=== PATIENT | male | born 1990 | race American Indian/Alaskan Native ===

== ENCOUNTER 2018-05-14 14:13 | Emergency (ER) | payer SELFPAY ==
[2018-05-14 14:33] VITALS: BP 113/61
[2018-05-14] MEDS ORDERED: TYLENOL ONE (17:12)
[2018-05-14] MEDS ORDERED: TYLENOL PO ONE (17:17)
[2018-05-14] MEDS ORDERED: ROXICODONE PO ONE (20:31)
--- NOTE | 2018-05-14 20:37 | Emergency Department Report ---
ED ENT HPI - General Chief complaint: Dental/Oral Stated complaint: TOOTHACHE Time Seen by Provider: 05/14/18 20:31 Source: patient Mode of arrival: Ambulatory Limitations: No Limitations - History of Present Illness Initial comments: 27-year-old -German male comes in for severe tooth pain that located in the right lower jaw. Patient reports that the onset was last night. Patient reports he did take ibuprofen 30 minutes prior to arrival here in the emergency room with no relief of pain. Patient reports that he also has a headache with the toothache. He reports he tried to put a temporary filling that he got [id number] and has used Orajel with no relief. Patient is aware that he has a hole in his tooth. She currently has no known drug allergies has no past medical history and currently takes no medications on a daily basis. MD complaint: tooth pain -: days(s) (1) Location: tooth # (30) Severity scale (0 -10): 10 Quality: stabbing, aching, sharp, constant Consistency: constant Improves with: other (ice) Worsens with: none Context- Dental: poor dental care - Related Data Previous Rx's Medication Instructions Recorded Last Taken Type Acetaminophen/Codeine [Tylenol 1 tab PO Q4HR PRN #18 tablet 05/14/18 Unknown Rx /Codeine # 3 tab] Ibuprofen [Motrin 600 MG tab] 600 mg PO Q8H PRN #30 tablet 05/14/18 Unknown Rx Penicillin Vk [Veetids TAB] 250 mg PO QID #40 tablet 05/14/18 Unknown Rx Allergies Allergy/AdvReac Type Severity Reaction Status Date / Time No Known Allergies Allergy Unverified 05/14/18 14:31 ED Dental HPI - General Chief complaint: Dental/Oral Stated complaint: TOOTHACHE Time Seen by Provider: 05/14/18 20:31 Source: patient Mode of arrival: Ambulatory Limitations: No Limitations - Related Data Previous Rx's Medication Instructions Recorded Last Taken Type Acetaminophen/Codeine [Tylenol 1 tab PO Q4HR PRN #18 tablet 05/14/18 Unknown Rx /Codeine # 3 tab] Ibuprofen [Motrin 600 MG tab] 600 mg PO Q8H PRN #30 tablet 05/14/18 Unknown Rx Penicillin Vk [Veetids TAB] 250 mg PO QID #40 tablet 05/14/18 Unknown Rx Allergies Allergy/AdvReac Type Severity Reaction Status Date / Time No Known Allergies Allergy Unverified 05/14/18 14:31 ED Review of Systems ROS: Stated complaint: TOOTHACHE Other details as noted in HPI Constitutional: denies: chills, fever Eyes: denies: eye pain, eye discharge, vision change ENT: dental pain Respiratory: denies: cough, shortness of breath, wheezing Neurological: headache ED Past Medical Hx - Past Medical History Previous Medical History?: No - Surgical History Past Surgical History?: No - Social History Smoking Status: Never Smoker Substance Use Type: None - Medications Home Medications: Home Medications Medication Instructions Recorded Confirmed Last Taken Type Acetaminophen/Codeine [Tylenol 1 tab PO Q4HR PRN #18 tablet 05/14/18 Unknown Rx /Codeine # 3 tab] Ibuprofen [Motrin 600 MG tab] 600 mg PO Q8H PRN #30 tablet 05/14/18 Unknown Rx Penicillin Vk [Veetids TAB] 250 mg PO QID #40 tablet 05/14/18 Unknown Rx ED Physical Exam - General Limitations: No Limitations General appearance: alert, in no apparent distress - Head Head exam: Present: atraumatic, normocephalic - Eye Eye exam: Present: normal appearance - Expanded ENT Exam Expanded Teeth exam: Present: dental caries, dental tenderness # (30). Absent: gingival enlargement - Neck Neck exam: Present: normal inspection ED Course Vital Signs 05/14/18 14:31 Temperature 98.1 F Pulse Rate 62 Respiratory 18 Rate Blood Pressure 113/61 O2 Sat by Pulse 100 Oximetry ED Medical Decision Making - Medical Decision Making Patient's been evaluated but this provider fast track. Patient has had Tylenol in triage We'll give patient oxycodone 10 mg by mouth now. Will discharge patient on Tylenol 3 and ibuprofen 800. Patient is to follow-up with dentistry. Patient verbalizes understanding. Critical care attestation.: If time is entered above; I have spent that time in minutes in the direct care of this critically ill patient, excluding procedure time. ED Disposition Clinical Impression: Tooth ache Disposition: DC-01 TO HOME OR SELFCARE Is pt being admited?: No Does the pt Need Aspirin: No Condition: Stable Instructions: Toothache (ED), Dental Caries (ED) Additional Instructions: Please take pain medication as prescribed. Please do not operate heavy machinery while taking Tylenol No. 3. It is very important for her to follow up with the dentist. Prescriptions: Acetaminophen/Codeine [Tylenol /Codeine # 3 tab] 1 tab PO Q4HR PRN #18 tablet PRN Reason: Pain Ibuprofen [Motrin 600 MG tab] 600 mg PO Q8H PRN #30 tablet PRN Reason: Pain Penicillin Vk [Veetids TAB] 250 mg PO QID #40 tablet Referrals: PRIMARY CARE, [Primary Care Provider] - 3-5 Days [facility] [Outside] - 3-5 Days [facility] [Outside] - 3-5 Days [facility] [Provider Group] - 3-5 Days Forms: Work/School Release Form(ED), Accompanied Note
== END 2018-05-14 20:50 | disposition home or self-care (01) ==
LOC: ED 14:13
DX: K08.89 Other specified disorders of teeth and supporting structures (principal); R51 Headache